=== PATIENT | female | born 1990 | race Caucasian/White ===

== ENCOUNTER 2019-01-05 10:08 | Inpatient (IN) | payer OTHER ==
[2019-01-05] MEDS ORDERED: XYLOCAINE 2% INFILTRATI ONE (10:46)
[2019-01-05] MEDS ORDERED: AMPICILLIN/NS 2 GM/100 ML 2 GM/100 ML BAG IV ONE (10:46)
[2019-01-05] MEDS ORDERED: BRETHINE SUB-Q PRN (10:46)
[2019-01-05] MEDS ORDERED: SUBLIMAZE IV PRN (10:46)
--- NOTE | 2019-01-05 10:51 | History and Physical Report ---
History of Present Illness Date of examination: 01/05/19 Date of admission: 01/05/19 Chief complaint: Labor History of present illness: 28 year old female presents to L&D in active labor with rupture of membranes since sometime this morning (patient does not remember exact time her water broke). Patient recieved care at [facility]. She brings her records with her. LMP 04/13/18. EDC 01/18/19. significant for the following: GBS positive, late transfer in at 28 weeks gestation. labs are as follows: B negative, antibody screen negative, rubella immune, hepatitis B surface antigen negative, HIV negative, RPR nonreactive, chlamydia negative, gonorrhea negative, pap smear negative, quad screen negative, 1 hour sugar test 109, GBS positive. Past History Past Medical History: other (strabismus left eye) Past Surgical History: other (surgery left eye for strabismus) DIETITIAN History: denies: cancer, chlamydia, fibroids, gonorrhea, hepatitis B, hepatitis C, herpes, HIV, syphilis, trichomonas Family/Genetic History: none Social history: single, lives with family, full code. denies: smoking, alcohol abuse, prescription drug abuse, IV drug use - Obstetrical History Expected Date of Delivery: 01/18/19 Actual Gestation: 38 Week(s) 1 Day(s) : 2 Para: 1 Hx # Term Pregnancies: 1 Number of Pregnancies: 0 Spontaneous Abortions: 0 Induced : 0 Number of Living Children: 1 Medications and Allergies Allergies Allergy/AdvReac Type Severity Reaction Status Date / Time No Known Allergies Allergy Unverified 01/05/19 10:17 Active Meds: Active Medications Ephedrine Sulfate (Ephedrine Sulfate) 10 mg IV Q2M PRN PRN Reason: Hypotension Fentanyl (Sublimaze) 100 mcg IV Q2H PRN PRN Reason: Labor Pain Oxytocin/Sodium Chloride (Pitocin/Ns 20 Unit/1000ml Drip) 20 units in 1,000 mls @ 125 mls/hr IV DIRECT YANG Oxytocin/Sodium Chloride (Pitocin/Ns 30 Unit/500ml) 30 units in 500 mls @ 1 mls/hr IV TITR YANG; Protocol Lactated Ringer's (Lactated Ringers) 1,000 mls @ 125 mls/hr IV DIRECT YANG Ampicillin Sodium (Ampicillin/Ns 2 Gm/100 Ml) 2 gm in 100 mls @ 100 mls/hr IV ONCE ONE; Protocol Stop: 01/05/19 11:45 Ampicillin Sodium (Ampicillin/Ns 1 Gm/50 Ml) 1 gm in 50 mls @ 100 mls/hr IV Q4HR YANG; Protocol Lidocaine (Xylocaine 2%) 20 ml INFILTRATI ONCE ONE Stop: 01/05/19 10:47 Terbutaline Sulfate (Brethine) 0.25 mg SUB-Q ONCE PRN PRN Reason: Hyperstimulation/Hypertonicity Review of Systems All systems: negative (contractions and leaking of water since this morning) - Physical Exam Abdomen: Positive: normal appearance, soft. Negative: distention, tenderness, guarding, rigidity Genitourinary (Female): Positive: normal external genitalia, normal perenium. Negative: perineal/vulvar lesions (no lesions seen on careful exam with bright light upon admission) Vagina: Positive: other (clear fluid) Uterus: Positive: enlarged (s=d) Anus/Rectum: Positive: normal perianal skin Extremities: Positive: normal. Negative: tenderness, edema - Obstetrical FHR: category 1 Uterine Contraction Monitor Mode: External Cervical Dilatation: 6 Cervical Effacement Percentage: 100 station: -2 Uterine Contraction Pattern: Regular Uterine Contraction Intensity: Moderate Results Result Diagrams: 01/05/19 10:49 All other labs normal. Assessment and Plan A: at 38 weeks, 1 day gestation. Active labor. GBS positive. P: Admit. GBS prophylaxis. Anticipate vaginal .
[2019-01-05] MEDS ORDERED: PITOCin/NS 20 UNIT/1000ML DRIP 20 UNITS/1,000 ML BAG IV SCH (11:00)
[2019-01-05] MEDS ORDERED: PITOCin/NS 30 UNIT/500ML 30 UNITS/500 ML BAG IV SCH (11:00)
[2019-01-05] MEDS ORDERED: LACTATED RINGERS 1,000 ML IV SCH (11:00)
[2019-01-05 11:13] LABS: Hematocrit 34.1 % (30.3-42.9); Hemoglobin 11.6 gm/dl (10.1-14.3); Mean Corpuscular HGB Conc 34 % (30-34); Mean Corpuscular Volume 89 fl (79-97); Platelet Count 197 K/mm3 (140-440); Red Blood Count 3.82 M/mm3 (3.65-5.03); Red Cell Distribution Width 13.3 % (13.2-15.2)
[2019-01-05] MEDS ORDERED: STADOL IV PRN (11:37)
[2019-01-05] MEDS ORDERED: BENADRYL PO PRN (13:04)
[2019-01-05] MEDS ORDERED: LANSINOH TP PRN (13:04)
[2019-01-05] MEDS ORDERED: MILK OF MAGNESIA PO PRN (13:04)
[2019-01-05] MEDS ORDERED: DULCOLAX PR PRN (13:04)
[2019-01-05] MEDS ORDERED: TUCKS PAD TP PRN (13:04)
--- NOTE | 2019-01-05 13:09 | Procedure Note ---
OB Delivery Note - Delivery Date of Delivery: 01/05/19 Surgeon: YESICA MORALES Estimated blood loss: other (150 cc) - Vaginal Delivery presentation: vertex Delivery position: OA Intrapartum events: none Delivery induction: none Delivery monitor: external FHT, external uterine Route of delivery: Delivery placenta: spontaneous Delivery cord: 3 umbilical vessels Episiotomy: none Delivery laceration: 1st degree Delivery repair: vicryl Anesthesia: none Delivery comments: Spontaneous vaginal delivery at 12:35 of liveborn female weighing 7 lb. 10 oz. over first degree laceration with apgars of 9/9. Baby placed skin to skin with mom immediately after delivery. Spontaneous cry and respirations. Baby bulb suctioned and dried. 3 vessel cord double clamped and cut after cessation of pulsation. Cord blood obtained. Spontaneous delivery of intact placenta and membranes. EBL 150 cc. Pitocin to IV fluids after delivery of placenta. Fundus firm and midline. First degree perineal laceration repaired with 3-0 vicryl. Vaginal sweep negative. Sponge count correct. Mother and baby stable.
[2019-01-05] MEDS: NORCO 5/325 PO PRN (13:20)
[2019-01-05] MEDS ORDERED: SODIUM CHLORIDE FLUSH SYRINGE 10 ML IV NR (14:00)
[2019-01-05] MEDS: IBUPROFEN PO SCH ×2 (14:43→21:27)
[2019-01-05] MEDS ORDERED: AMPICILLIN/NS 1 GM/50 ML 1 GM/50 ML BAG IV SCH (14:50)
[2019-01-06 01:13] LABS: Hematocrit 29.7 % (30.3-42.9)
[2019-01-06] MEDS: IBUPROFEN PO SCH ×2 (04:13→18:39)
[2019-01-06] MEDS: NORCO 5/325 PO PRN ×2 (10:05→22:54)
--- NOTE | 2019-01-06 10:36 | Progress Note ---
Assessment and Plan - Patient Problems (1) Status post normal vaginal delivery Current Visit: Yes Status: Acute Plan to address problem: PPD 1 - stable Continue routine PP orders Discharge to home today Follow up at [facility] as needed or in 6 weeks for exam (2) Anemia due to blood loss, acute Current Visit: Yes Status: Acute Plan to address problem: Asymptomatic Iron therapy initiated (3) Rh negative status during Current Visit: Yes Status: Acute Qualifiers: Trimester: third trimester Qualified Code(s): O26.893 - Other specified related conditions, third trimester; Z67.91 - Unspecified blood type, Rh negative Plan to address problem: RhoGam administered Subjective - Subjective Date of service: 01/06/19 Principal diagnosis: PPD #1, s/p Interval history: see H&P and OB Delivery Procedure Note Patient reports: appetite normal, voiding normally, pain well controlled, ambulating normally, no dizzy ambulation : doing well Objective - Vital Signs Latest vital signs: Vital Signs Temp Pulse Resp BP BP Pulse Ox 01/06/19 09:43 98.1 F 75 18 104/72 98 01/06/19 04:13 18 01/06/19 00:00 98.4 F 66 18 114/79 01/05/19 22:27 18 01/05/19 21:27 18 01/05/19 20:00 98.4 F 66 18 101/71 01/05/19 16:31 98.1 F 71 20 100/52 01/05/19 14:43 20 01/05/19 14:20 98.7 F 65 20 103/56 98 01/05/19 13:48 67 119/66 01/05/19 13:44 98.7 F 20 01/05/19 13:10 78 126/63 01/05/19 12:55 78 118/72 01/05/19 12:52 98.0 F 01/05/19 12:50 73 120/68 01/05/19 11:25 75 118/72 01/05/19 11:08 98.6 F 22 Intake and Output 01/05/19 01/06/19 01/06/19 23:59 07:59 15:59 Intake Total 540 200 Output Total 1000 Balance -460 200 Intake: Oral 240 200 Intake, Free Water 300 Output: Urine 1000 Void 1000 Other: Total, Intake Amount 120 200 Total, Output Amount 600 # Voids Void 1 - Exam Cardiovascular: Present: Regular rate Lungs: Present: Clear to auscultation Abdomen: Present: normal appearance, soft Vulva: both: laceration/episiotomy (well approximated) Uterus: Present: normal, firm, fundal height at umbilicus Extremities: Present: normal Comments: small lochia - Labs Labs: Abnormal lab results 01/06/19 Range/Units 00:46 Hgb 10.0 L (10.1-14.3) gm/dl Hct 29.7 L (30.3-42.9) %
--- NOTE | 2019-01-06 10:40 | Discharge Summary ---
Providers - Providers Date of Admission: 01/05/19 10:48 Date of discharge: 01/06/19 Attending physician: AIDEN CLARK MD Primary care physician: JESSE MARTINEZ MD Hospitalization Reason for admission: active labor, IUP at term Delivery: Episiotomy: none Laceration: 1st degree Other procedures: none complications: none Discharge diagnosis: IUP at term delivered baby: female Hospital course: Uncomplicated Condition at discharge: Stable Disposition: PA-01 TO HOME OR SELFCARE - Discharge Diagnoses (1) Status post normal vaginal delivery Status: Acute (2) Anemia due to blood loss, acute Status: Acute Comment: Asymptomatic Continue iron therapy Encouraged iron-rich foods (3) Rh negative status during Status: Acute Qualifiers: Trimester: third trimester Qualified Code(s): O26.893 - Other specified related conditions, third trimester; Z67.91 - Unspecified blood type, Rh negative Comment: Rhogam administered Plan - Discharge Medications Prescriptions: Ferrous Sulfate [Feosol 325 MG tab] 325 mg PO QDAY #30 tablet - Provider Discharge Summary Activity: routine, no sex for 6 weeks, no heavy lifting 4 weeks, no strenuous exercise Diet: routine Instructions: routine Additional instructions: [] Smoking cessation referral if applicable(refer to patient education folder for contact #) [] Refer to [facility] Booklet Call your doctor immediately for: * Fever > 100.5 * Heavy vaginal bleeding ( >1 pad per hour) * Severe persistent headache * Shortness of breath * Reddened, hot, painful area to leg or breast * Drainage or odor from incision. * Keep incision clean and dry at all times and follow doctor's instructions regarding bathing/showering - Follow up plan Follow up: PRIMARY CARE, [Primary Care Provider] - 6 Weeks (Follow up at [facility] as needed or in 6 weeks for exam)
[2019-01-06] MEDS: FEOSOL PO SCH (18:39)
[2019-01-07] MEDS: IBUPROFEN PO SCH ×2 (00:05→05:55)
[2019-01-07] MEDS: NORCO 5/325 PO PRN (15:49)
[2019-01-07] MEDS: FEOSOL PO SCH (15:49)
[2019-01-07 17:03] VITALS: BP 108/73
== END 2019-01-07 16:30 | disposition home or self-care (01) | DRG 806 ==
LOC: TRG 10:08 → LD 10:48 → OB 14:22
PROVIDERS: ADMIT Obstetrics & Gynecology; ATTEND Obstetrics & Gynecology
PROC: 10E0XZZ Delivery of Products of Conception, External Approach (ICD-10-PCS; principal; 2019-01-05)
PROC: 0HQ9XZZ Repair Perineum Skin, External Approach (ICD-10-PCS; 2019-01-05)
PROC: 3E0234Z Introduction of Serum, Toxoid and Vaccine into Muscle, Percutaneous Approach (ICD-10-PCS; 2019-01-06)
DX: O99.824 Streptococcus B carrier state complicating childbirth (principal); D62 Acute posthemorrhagic anemia; Z37.0 Single live birth; O90.81 Anemia of the puerperium; O70.0 First degree perineal laceration during delivery; O26.893 Other specified pregnancy related conditions, third trimester; Z3A.38 38 weeks gestation of pregnancy; Z67.21 Type B blood, Rh negative
CPT/HCPCS: 36415; 85014; 85018; 85027; 85461; 86592; 86850; 86900; 86901; G0378; A6250; J0290; J2590; J2790; J3010; J7120